=== PATIENT | female | born 1960 | race African-American/Black ===

== ENCOUNTER 2022-03-04 09:01 | Outpatient (CLI) | payer BC | END 2022-03-04 09:02 | disposition home or self-care (01) | LOC: BICMAMMO 09:01 | PROVIDERS: ATTEND Internal Medicine | DX: N63.0 Unspecified lump in unspecified breast (principal) | CPT/HCPCS: 19083; 77066; G0279 ==

== ENCOUNTER 2022-06-21 16:44 | Outpatient (CLI) | payer BC | END 2022-06-21 16:45 | disposition home or self-care (01) | LOC: BICULT 16:44 | PROVIDERS: ATTEND Internal Medicine | DX: R60.0 Localized edema (principal) | CPT/HCPCS: 93970 ==